=== PATIENT | male | born 1950 | race Caucasian/White ===

== ENCOUNTER 2024-02-02 10:48 | Inpatient (IN) | payer OTHER ==
[2024-02-02] MEDS: SODIUM CHLORIDE 0.9% 500 ML INFUS.BAG IV ONE ×2 (11:30→12:20)
[2024-02-02 11:44] LABS: BASO % 1.2 % (0-2.0); EOS % 0.1 % (0-4.5); HEMATOCRIT 51.8 % (35.4-49); HEMOGLOBIN 17.2 GM/dL (11.7-16.9); LYMPH % 7.3 % (8-40); MCH 33.7 pg (25.7-33.7); MCHC 33.2 g/dl (32.0-35.9); MEAN CELL VOLUME 101.6 fl (80-96); MEAN PLT VOLUME 11.3 fl (7.5-11.1); MONO % 7.4 % (3.8-10.2); RBC 5.09 M/mm3 (4.00-5.60); RDW 16.7 % (11.9-15.9); WHITE BLOOD COUNT 7.5 K/mm3 (4.0-10.0)
[2024-02-02 11:51] LABS: INR 1.6 (0.83-1.09); PROTHROMBIN TIME (PATIENT) 18.2 SEC (9.7-13.0)
[2024-02-02 11:54] LABS: ACTIVATED PTT 34.8 SECONDS (25.2-36.5)
[2024-02-02] MEDS ORDERED: dilTIAZem HCL 125 MG/25 ML - 25 ML VIAL ONE ×3 (12:07→15:41)
[2024-02-02 12:16] LABS: PHOSPHOROUS 2.8 mg/dL (2.5-4.9)
[2024-02-02 12:17] LABS: PLATELET COUNT 94 10^3/uL (134-434)
[2024-02-02] MEDS: dilTIAZem HCL 50 MG/10 ML - 10 ML VIAL IVPUSH ONE ×4 (12:26→15:48)
[2024-02-02 13:23] LABS: POTASSIUM 4.2 mmol/L (3.5-5.1)
[2024-02-02 13:25] LABS: CALCIUM 9.5 mg/dL (8.5-10.1)
[2024-02-02 13:26] LABS: ALBUMIN 3.8 g/dl (3.4-5.0); BLOOD UREA NITROGEN 36.7 mg/dL (7-18); MAGNESIUM 1.7 mg/dL (1.8-2.4)
[2024-02-02 13:29] LABS: CREATININE 1.4 mg/dL (0.55-1.3)
[2024-02-02 13:30] LABS: TOT PROT 6.7 g/dl (6.4-8.2)
[2024-02-02 13:31] LABS: BILIRUBIN,TOTAL 7.4 mg/dL (0.2-1)
[2024-02-02] MEDS ORDERED: ENOXAPARIN NA (PORCINE) 60 MG/0.6 ML DISP.SYRIN SQ ONE (14:36)
[2024-02-02] MEDS: ENOXAPARIN NA (PORCINE) 80 MG/0.8 ML DISP.SYRIN SQ ONE (14:40)
[2024-02-02] MEDS ORDERED: METOPROLOL TARTRATE 5 MG/5 ML VIAL ONE ×2 (16:01→18:11)
[2024-02-02] MEDS: METOPROLOL TARTRATE 5 MG/5 ML VIAL IVPUSH ONE ×3 (16:06→22:36)
[2024-02-02 16:37] LABS: N-TERMINAL BNP 17751.5 pg/ml (5-450)
[2024-02-02] MEDS ORDERED: MAGNESIUM SULFATE IN WATER 2 GM/50 ML IVPB IVPB ONE (19:46)
[2024-02-02] MEDS: MAGNESIUM SULFATE IN WATER 2 GM/50 ML IVPB IVPB ONE (19:55)
[2024-02-03 00:32] LABS: METHADONE, UR NEGATIVE (NEGATIVE); OPIATES, URI NEGATIVE (NEGATIVE)
[2024-02-03 00:33] LABS: PHENCYCLIDINE,URINE NEGATIVE (NEGATIVE); URINE AMPHETAMINES NEGATIVE (NEGATIVE); URINE BARBITURATES NEGATIVE (NEGATIVE); URINE BENZODIAZEPINES NEGATIVE (NEGATIVE)
[2024-02-03 00:50] LABS: COCAINE, UR POSITIVE (NEGATIVE)
[2024-02-03] MEDS: ENOXAPARIN NA (PORCINE) 60 MG/0.6 ML DISP.SYRIN SQ SCH ×2 (01:05→10:15)
[2024-02-03] MEDS: LORazepam 1 MG TABLET PO PRN ×2 (01:18→18:47)
[2024-02-03] MEDS: hydrALAZINE HCL 20 MG/ML VIAL IVPUSH ONE (02:20)
[2024-02-03 08:30] LABS: BASO % 0.3 % (0-2.0); CHLORIDE 100 mmol/L (98-107); HEMATOCRIT 51.5 % (35.4-49); HEMOGLOBIN 16.6 GM/dL (11.7-16.9); LYMPH % 4.8 % (8-40); MCH 33.6 pg (25.7-33.7); MCHC 32.2 g/dl (32.0-35.9); MEAN CELL VOLUME 104.4 fl (80-96); MEAN PLT VOLUME 11.5 fl (7.5-11.1); MONO % 8.1 % (3.8-10.2); NEUT % 86.8 % (42.8-82.8); PLATELET COUNT 93 10^3/uL (134-434); POTASSIUM 4.5 mmol/L (3.5-5.1); RBC 4.93 M/mm3 (4.00-5.60); RDW 16.6 % (11.9-15.9); SODIUM 138 mmol/L (136-145); WHITE BLOOD COUNT 9.5 K/mm3 (4.0-10.0)
[2024-02-03 08:36] LABS: ALBUMIN 3.6 g/dl (3.4-5.0); ANION GAP 15 mmol/L (4-13); BLOOD UREA NITROGEN 35.9 mg/dL (7-18); CALCIUM 8.9 mg/dL (8.5-10.1); CO2 22 mmol/L (21-32); GLUCOSE,RANDOM 79 mg/dL (74-106); MAGNESIUM 2.3 mg/dL (1.8-2.4)
[2024-02-03 08:39] LABS: CREATININE 1.6 mg/dL (0.55-1.3); SGOT/AST 121 U/L (15-37); SGPT/ALT 194 U/L (13-61)
[2024-02-03 08:40] LABS: PHOSPHOROUS 4.6 mg/dL (2.5-4.9)
[2024-02-03 08:41] LABS: BILIRUBIN,TOTAL 8.1 mg/dL (0.2-1); TOT PROT 6.3 g/dl (6.4-8.2)
[2024-02-03 08:42] LABS: ALK PHOS 104 U/L (45-117)
[2024-02-03] MEDS ORDERED: METOPROLOL TARTRATE 25 MG TABLET (FP) PO SCH (10:00)
[2024-02-03] MEDS ORDERED: ALBUTEROL SO4 2.5/IPRATROPIUM 0.5 INH SOL 3 ML VIAL.NEB. NEB PRN (12:02)
[2024-02-03] MEDS: dilTIAZem HCL 30 MG TABLET PO SCH (12:08)
[2024-02-03] MEDS: FUROSEMIDE 40 MG/4 ML INJECTABLE VIAL IVPUSH SCH (14:13)
[2024-02-03] MEDS ORDERED: dilTIAZem HCL 50 MG/10 ML - 10 ML VIAL IVPUSH PRN (17:01)
[2024-02-03] MEDS: SODIUM CHLORIDE 1,000 ML IV SCH (17:11)
[2024-02-03] MEDS: dilTIAZem HCL 25 MG/5 ML - 5 ML VIAL IVPUSH PRN (17:28)
[2024-02-03 17:40] LABS: INR 1.74 (0.83-1.09); PROTHROMBIN TIME (PATIENT) 19.4 SEC (9.7-13.0)
[2024-02-03 17:50] LABS: POTASSIUM 4.3 mmol/L (3.5-5.1)
[2024-02-03 17:52] LABS: CALCIUM 8.7 mg/dL (8.5-10.1)
[2024-02-03 17:53] LABS: ALBUMIN 3.2 g/dl (3.4-5.0); BLOOD UREA NITROGEN 43.4 mg/dL (7-18)
[2024-02-03 17:56] LABS: CREATININE 1.9 mg/dL (0.55-1.3)
[2024-02-03 17:57] LABS: BILIRUBIN,TOTAL 8.1 mg/dL (0.2-1); TOT PROT 5.6 g/dl (6.4-8.2)
[2024-02-03] MEDS: LORazepam 2 MG TABLET PO SCH (18:56)
[2024-02-03] MEDS ORDERED: SODIUM CHLORIDE 1,000 ML IV STA (20:55)
[2024-02-03] MEDS ORDERED: DIGOXIN 0.5 MG/2 ML AMPUL ONE (21:05)
[2024-02-03] MEDS: DIGOXIN 0.5 MG/2 ML AMPUL IVPUSH ONE (21:06)
[2024-02-03] MEDS: SODIUM CHLORIDE 500 ML IV STA (21:07)
[2024-02-03] MEDS: LORazepam 1 MG TABLET PO SCH (22:00)
[2024-02-04] MEDS: HALOPERIDOL LACTATE 5 MG/ML IM ONE (01:23)
[2024-02-04] MEDS: DIGOXIN 0.5 MG/2 ML AMPUL IVPUSH ONE ×2 (02:01→11:00)
[2024-02-04 08:15] LABS: HEMATOCRIT 47.8 % (35.4-49); HEMOGLOBIN 15.9 GM/dL (11.7-16.9); LYMPH % 6.8 % (8-40); MCHC 33.3 g/dl (32.0-35.9); MEAN CELL VOLUME 101.9 fl (80-96); MEAN PLT VOLUME 10.2 fl (7.5-11.1); MONO % 7.9 % (3.8-10.2); NEUT % 85.3 % (42.8-82.8); PLATELET COUNT 80 10^3/uL (134-434); RDW 16.4 % (11.9-15.9); WHITE BLOOD COUNT 8.1 K/mm3 (4.0-10.0)
[2024-02-04 08:22] LABS: POTASSIUM 4.4 mmol/L (3.5-5.1)
[2024-02-04 08:24] LABS: CALCIUM 8.4 mg/dL (8.5-10.1)
[2024-02-04 08:25] LABS: ALBUMIN 3.1 g/dl (3.4-5.0); BLOOD UREA NITROGEN 45.1 mg/dL (7-18)
[2024-02-04 08:28] LABS: CREATININE 1.7 mg/dL (0.55-1.3)
[2024-02-04 08:29] LABS: BILIRUBIN,TOTAL 7.9 mg/dL (0.2-1); TOT PROT 5.6 g/dl (6.4-8.2)
[2024-02-04 09:21] LABS: ARTERIAL BLD GAS O2 SATURATION 91.3 % (95-98); ARTERIAL BLOOD GAS PO2 57.3 mmHg (80-100); ARTERIAL BLOOD GAS pH 7.453 (7.350-7.450)
[2024-02-04 09:25] LABS: ALLENS TEST POSITIVE
[2024-02-04] MEDS: dilTIAZem HCL 60 MG TABLET PO SCH (11:18)
[2024-02-04] MEDS ORDERED: FUROSEMIDE 40 MG/4 ML INJECTABLE VIAL ONE (12:52)
[2024-02-04] MEDS: FUROSEMIDE 40 MG/4 ML INJECTABLE VIAL IVPUSH ONE (13:31)
[2024-02-04] MEDS ORDERED: DIGOXIN 0.5 MG/2 ML AMPUL IVPUSH ONE (18:00)
[2024-02-04] MEDS: LORazepam 2 MG/ML SDV VIAL IVPUSH PRN (18:49)
[2024-02-04] MEDS: MIDODRINE HCL 5 MG TABLET PO SCH (18:51)
[2024-02-05] MEDS ORDERED: LORazepam 1 MG TABLET PO SCH (05:00)
[2024-02-05 07:57] LABS: BASO % 0.1 % (0-2.0); HEMATOCRIT 50.5 % (35.4-49); HEMOGLOBIN 17.1 GM/dL (11.7-16.9); LYMPH % 4.4 % (8-40); MCH 34.1 pg (25.7-33.7); MCHC 33.9 g/dl (32.0-35.9); MEAN CELL VOLUME 100.6 fl (80-96); MEAN PLT VOLUME 10.4 fl (7.5-11.1); MONO % 7.2 % (3.8-10.2); NEUT % 88.3 % (42.8-82.8); PLATELET COUNT 71 10^3/uL (134-434); RBC 5.02 M/mm3 (4.00-5.60); RDW 16.5 % (11.9-15.9); WHITE BLOOD COUNT 4.4 K/mm3 (4.0-10.0)
[2024-02-05 08:12] LABS: INR 1.38 (0.83-1.09); POTASSIUM 3.3 mmol/L (3.5-5.1); PROTHROMBIN TIME (PATIENT) 15.4 SEC (9.7-13.0)
[2024-02-05 08:17] LABS: ALBUMIN 2.6 g/dl (3.4-5.0); CALCIUM 8.2 mg/dL (8.5-10.1)
[2024-02-05 08:18] LABS: BLOOD UREA NITROGEN 34.3 mg/dL (7-18)
[2024-02-05 08:20] LABS: CREATININE 1.3 mg/dL (0.55-1.3)
[2024-02-05 08:22] LABS: BILIRUBIN,TOTAL 7.7 mg/dL (0.2-1)
[2024-02-05] MEDS: FUROSEMIDE 40 MG/4 ML INJECTABLE VIAL IVPUSH SCH (09:37)
[2024-02-05] MEDS ORDERED: FUROSEMIDE 40 MG/4 ML INJECTABLE VIAL IVPUSH SCH (10:00)
[2024-02-05] MEDS ORDERED: DIGOXIN 0.5 MG/2 ML AMPUL IVPUSH SCH (10:00)
[2024-02-05 10:51] LABS: ANISOCYTOSIS 0; MACROCYTOSIS 0
[2024-02-05] MEDS: DIGOXIN 0.5 MG/2 ML AMPUL IVPUSH ONE ×2 (12:00→21:01)
[2024-02-05] MEDS: RIFAXIMIN 550 MG TABLET PO SCH (15:24)
[2024-02-05] MEDS: LACTULOSE 20 GM/30 ML UDC (FOR ORAL USE ONLY) PO SCH (15:24)
[2024-02-05] MEDS: KCL 10 MEQ IVPB 10 MEQ/100 ML INFUS.BAG IVPB SCH (17:14)
[2024-02-05] MEDS: PHYTONADIONE 10 MG/1 ML AMP IVPB ONE (17:14)
[2024-02-05 19:16] LABS: BF WBC & OTHER NUCLEATED CELLS 651 /mm3
[2024-02-05 19:27] LABS: BODY FLUID MACROPHAGES 32 %; BODY FLUID MONOCYTE 1 %
[2024-02-06] MEDS ORDERED: LORazepam 0.5 MG TABLET PO PRN
[2024-02-06] MEDS ORDERED: LORazepam 0.5 MG TABLET PO SCH (05:00)
[2024-02-06 06:51] LABS: HEMATOCRIT 55.1 % (35.4-49); HEMOGLOBIN 18.2 GM/dL (11.7-16.9); MCH 33.7 pg (25.7-33.7); MEAN CELL VOLUME 102.2 fl (80-96); MEAN PLT VOLUME 10.7 fl (7.5-11.1); PLATELET COUNT 61 10^3/uL (134-434); RBC 5.39 M/mm3 (4.00-5.60); RDW 16.7 % (11.9-15.9); WHITE BLOOD COUNT 7.5 K/mm3 (4.0-10.0)
[2024-02-06 06:53] LABS: INR 1.16 (0.83-1.09); PROTHROMBIN TIME (PATIENT) 13.1 SEC (9.7-13.0)
[2024-02-06 07:09] LABS: POTASSIUM 3.5 mmol/L (3.5-5.1)
[2024-02-06 07:20] LABS: CALCIUM 8.2 mg/dL (8.5-10.1)
[2024-02-06 07:21] LABS: ALBUMIN 2.6 g/dl (3.4-5.0); BLOOD UREA NITROGEN 30.6 mg/dL (7-18)
[2024-02-06 07:24] LABS: CREATININE 1.2 mg/dL (0.55-1.3)
[2024-02-06 07:27] LABS: BILIRUBIN,TOTAL 8.7 mg/dL (0.2-1)
[2024-02-06 08:51] LABS: ANISOCYTOSIS 0; MACROCYTOSIS 1+
[2024-02-06 11:24] LABS: BILIRUBIN,DIRECT 6.1 mg/dL (0.0-0.2)
[2024-02-06] MEDS: ACETAMINOPHEN 1000 MG/100 ML BAG IVPB ONE (14:20)
[2024-02-07] MEDS: LORazepam 0.5 MG TABLET PO ONE (06:32)
[2024-02-07 06:43] LABS: INR 1.22 (0.83-1.09)
[2024-02-07 06:52] LABS: CHLORIDE 104 mmol/L (98-107); SODIUM 146 mmol/L (136-145)
[2024-02-07 06:54] LABS: BLOOD UREA NITROGEN 33.8 mg/dL (7-18)
[2024-02-07 06:56] LABS: ALBUMIN 2.5 g/dl (3.4-5.0); CALCIUM 8.5 mg/dL (8.5-10.1); CO2 34 mmol/L (21-32); GLUCOSE,RANDOM 124 mg/dL (74-106)
[2024-02-07 06:59] LABS: CREATININE 1.2 mg/dL (0.55-1.3); SGOT/AST 81 U/L (15-37); SGPT/ALT 116 U/L (13-61)
[2024-02-07 07:01] LABS: BILIRUBIN,TOTAL 9.4 mg/dL (0.2-1)
[2024-02-07 07:02] LABS: ALK PHOS 76 U/L (45-117)
[2024-02-07 07:09] LABS: ANION GAP 7 mmol/L (4-13); POTASSIUM 2.9 mmol/L (3.5-5.1)
[2024-02-07 07:15] LABS: HEMATOCRIT 53.9 % (35.4-49); HEMOGLOBIN 17.9 GM/dL (11.7-16.9); MCH 33.6 pg (25.7-33.7); MCHC 33.1 g/dl (32.0-35.9); MEAN CELL VOLUME 101.4 fl (80-96); MEAN PLT VOLUME 10.7 fl (7.5-11.1); PLATELET COUNT 47 10^3/uL (134-434); RBC 5.32 M/mm3 (4.00-5.60); RDW 16.9 % (11.9-15.9); WHITE BLOOD COUNT 2.1 K/mm3 (4.0-10.0)
[2024-02-07 07:48] LABS: MAGNESIUM 1.3 mg/dL (1.8-2.4)
[2024-02-07 08:00] LABS: PHOSPHOROUS 1.1 mg/dL (2.5-4.9)
[2024-02-07] MEDS: MAGNESIUM SULFATE IN WATER 2 GM/50 ML IVPB IVPB ONE (09:16)
[2024-02-07 09:49] LABS: ANISOCYTOSIS 0; MACROCYTOSIS 0
[2024-02-07] MEDS: KCL 10 MEQ IVPB 10 MEQ/100 ML INFUS.BAG IVPB SCH (10:53)
[2024-02-07] MEDS ORDERED: LORazepam 1 MG TABLET PO PRN (11:44)
[2024-02-07] MEDS ORDERED: POTASSIUM CHLORIDE 20 MEQ in AMINO ACIDS 4.25%/D5W 1,000 ML IV SCH (11:45)
[2024-02-07] MEDS: POTASSIUM PHOSPHATE 15 MM in SODIUM CHLORIDE 250 ML IVPB ONE (12:40)
[2024-02-07] MEDS: POTASSIUM CHLORIDE ORAL LIQUID 20 MEQ/15 ML PO ONE (13:34)
[2024-02-07] MEDS: FOLIC ACID 1 MG TABLET (FP) PO SCH (13:35)
[2024-02-07 13:41] VITALS: BMI 17.7
[2024-02-07 14:09] LABS: BODY FLUID ALBUMIN 1.1 g/dL (Not Estab.)
[2024-02-07 14:10] LABS: CHLORIDE 104 mmol/L (98-107); SODIUM 149 mmol/L (136-145)
[2024-02-07 14:12] LABS: ALBUMIN 2.7 g/dl (3.4-5.0); ANION GAP 13 mmol/L (4-13); BLOOD UREA NITROGEN 36.9 mg/dL (7-18); CO2 32 mmol/L (21-32)
[2024-02-07 14:13] LABS: GLUCOSE,RANDOM 97 mg/dL (74-106)
[2024-02-07 14:15] LABS: SGOT/AST 79 U/L (15-37); SGPT/ALT 120 U/L (13-61)
[2024-02-07 14:16] LABS: CREATININE 1.3 mg/dL (0.55-1.3)
[2024-02-07 14:17] LABS: BILIRUBIN,TOTAL 10.3 mg/dL (0.2-1); TOT PROT 5.3 g/dl (6.4-8.2)
[2024-02-07 14:18] LABS: ALK PHOS 80 U/L (45-117)
[2024-02-07] MEDS: THIAMINE HCL 200 MG/2 ML VIAL IVPB SCH (14:39)
[2024-02-07 14:44] LABS: PHOSPHOROUS 0.9 mg/dL (2.5-4.9)
[2024-02-07] MEDS: LORazepam 2 MG TABLET PO SCH (15:28)
[2024-02-07] MEDS: FUROSEMIDE 40 MG/4 ML INJECTABLE VIAL IVPUSH ONE (17:53)
[2024-02-07 18:29] LABS: ARTERIAL BLD GAS O2 SATURATION 79.8 % (95-98); ARTERIAL BLOOD GAS BASE EXCESS 5.1 mmol/L (-2-2); ARTERIAL BLOOD GAS PO2 41.3 mmHg (80-100); ARTERIAL BLOOD GAS pH 7.467 (7.350-7.450)
[2024-02-07 18:31] LABS: ALLENS TEST POSITIVE
[2024-02-07] MEDS: LORazepam 1 MG TABLET PO SCH (18:46)
[2024-02-07] MEDS ORDERED: METOPROLOL TARTRATE 5 MG/5 ML VIAL ONE (19:14)
[2024-02-07] MEDS: NOREPINEPHRINE BITARTRATE 4,000 MCG in DEXTROSE 5%-WATER - 496 ML IV SCH (19:25)
[2024-02-07] MEDS ORDERED: NOREPINEPHRINE BITARTRATE 4 MG/4 ML ML IV ONE ×2 (19:26→20:47)
[2024-02-07] MEDS ORDERED: PROPOFOL 1,000,000 MCG/100 ML VIAL ONE (19:51)
[2024-02-07] MEDS: PROPOFOL 1,000,000 MCG/100 ML VIAL IVPB SCH (20:03)
[2024-02-07] MEDS: FENTANYL NS IVPB 500 MCG/100 ML BAG IVPB SCH (20:06)
[2024-02-07] MEDS: NOREPINEPHRINE BITARTRATE/D5W 8 MG/250 ML BAG IVPB SCH (21:14)
[2024-02-07] MEDS: POTASSIUM CHLORIDE 20 MEQ in AMINO ACIDS 4.25%/D5W 1,000 ML IV SCH (21:17)
[2024-02-07] MEDS: MULTIVIT INJ. ADULT COMBO WITH VIT K 1 COMBO 10 ML VIAL IV SCH (21:20)
[2024-02-07] MEDS ORDERED: VASopressin 20 UNITS/ML VIAL IV ONE (21:25)
[2024-02-07] MEDS: VASopressin 40 UNITS/100 ML BAG IV SCH (21:33)
[2024-02-07] MEDS: PANTOPRAZOLE SODIUM 40 MG VIAL IVPUSH SCH (21:43)
[2024-02-07] MEDS: HYDROCORTISONE SOD SUCCINATE 100 MG/2 ML VIAL IVPUSH SCH (21:43)
[2024-02-07 22:27] LABS: ARTERIAL BLOOD GAS BASE EXCESS 3.1 mmol/L (-2-2); ARTERIAL BLOOD GAS PO2 56.4 mmHg (80-100); ARTERIAL BLOOD GAS pH 7.394 (7.350-7.450)
[2024-02-07 22:36] LABS: BASO % 0.5 % (0-2.0); EOS % 0.7 % (0-4.5); HEMATOCRIT 52.8 % (35.4-49); HEMOGLOBIN 17.3 GM/dL (11.7-16.9); LYMPH % 9.8 % (8-40); MCH 32.9 pg (25.7-33.7); MCHC 32.8 g/dl (32.0-35.9); MEAN CELL VOLUME 100.5 fl (80-96); MEAN PLT VOLUME 11.3 fl (7.5-11.1); MONO % 2.4 % (3.8-10.2); NEUT % 86.6 % (42.8-82.8); RBC 5.25 M/mm3 (4.00-5.60); RDW 17.9 % (11.9-15.9)
[2024-02-07] MEDS: CHLORHEXIDINE GLUCONATE 4% CLEANSER FOR DECOLONIZATION TP SCH (22:38)
[2024-02-07] MEDS: MUPIROCIN 2% TOPICAL OINTMENT FOR DECOLONIZATION NS SCH (22:38)
[2024-02-07 22:42] LABS: INR 1.31 (0.83-1.09); PROTHROMBIN TIME (PATIENT) 14.7 SEC (9.7-13.0)
[2024-02-07 22:45] LABS: ACTIVATED PTT 57.6 SECONDS (25.2-36.5)
[2024-02-07] MEDS: VANCOMYCIN/WATER FOR INJ (PEG) 1,000 MG/200 ML BAG IVPB ONE (22:48)
[2024-02-07 22:54] LABS: WHITE BLOOD COUNT 0.6 K/mm3 (4.0-10.0)
[2024-02-07 22:55] LABS: PLATELET COUNT 29 10^3/uL (134-434)
[2024-02-07 22:59] LABS: CHLORIDE 105 mmol/L (98-107); SODIUM 147 mmol/L (136-145)
[2024-02-07 23:02] LABS: BLOOD UREA NITROGEN 39.1 mg/dL (7-18); CO2 32 mmol/L (21-32); GLUCOSE,RANDOM 104 mg/dL (74-106); MAGNESIUM 1.6 mg/dL (1.8-2.4)
[2024-02-07 23:05] LABS: CREATININE 1.5 mg/dL (0.55-1.3); PHOSPHOROUS 2.1 mg/dL (2.5-4.9); SGOT/AST 56 U/L (15-37); SGPT/ALT 87 U/L (13-61)
[2024-02-07 23:06] LABS: BILIRUBIN,TOTAL 8.5 mg/dL (0.2-1); TOT PROT 4.2 g/dl (6.4-8.2)
[2024-02-07 23:08] LABS: ALK PHOS 64 U/L (45-117)
[2024-02-07 23:09] LABS: ANION GAP 10 mmol/L (4-13); ANISOCYTOSIS 2+; LACTIC ACID 8.2 mmol/L (0.4-2.0); LDH 518 U/L (87-246); MACROCYTOSIS 1+; POTASSIUM 2.8 mmol/L (3.5-5.1); TARGET CELLS 1+; TEAR DROP CELLS 1+
[2024-02-07] MEDS: KCL 20 MEQ PREMIX BAG 20 MEQ/100 ML INFUS.BAG IVPB SCH (23:52)
[2024-02-08] MEDS: POTASSIUM PHOSPHATE 15 MM in SODIUM CHLORIDE 100 ML IVPB ONE (01:43)
[2024-02-08] MEDS: MAGNESIUM 2GM/50ML STERILE WATER IVPB IVPB ONE (01:43)
[2024-02-08] MEDS: PIPERACILLIN/TAZOB 3.375 GM 3.375 GM in DEXTROSE 5%-WATER - 50 ML IVPB SCH ×2 (02:14→17:58)
[2024-02-08 06:57] LABS: INR 1.27 (0.83-1.09); PROTHROMBIN TIME (PATIENT) 14.2 SEC (9.7-13.0)
[2024-02-08 06:59] LABS: ACTIVATED PTT 48.5 SECONDS (25.2-36.5)
[2024-02-08 07:04] LABS: HEMATOCRIT 51.7 % (35.4-49); HEMOGLOBIN 16.8 GM/dL (11.7-16.9); MCH 33.3 pg (25.7-33.7); MCHC 32.5 g/dl (32.0-35.9); MEAN CELL VOLUME 102.6 fl (80-96); MEAN PLT VOLUME 10.1 fl (7.5-11.1); PLATELET COUNT 27 10^3/uL (134-434); RBC 5.04 M/mm3 (4.00-5.60); RDW 18.7 % (11.9-15.9)
[2024-02-08 07:11] LABS: WHITE BLOOD COUNT 1.4 K/mm3 (4.0-10.0)
[2024-02-08 07:20] LABS: POTASSIUM 5.1 mmol/L (3.5-5.1)
[2024-02-08 07:24] LABS: BLOOD UREA NITROGEN 47.1 mg/dL (7-18); MAGNESIUM 2.1 mg/dL (1.8-2.4)
[2024-02-08 07:26] LABS: CREATININE 1.8 mg/dL (0.55-1.3)
[2024-02-08 07:27] LABS: PHOSPHOROUS 4.9 mg/dL (2.5-4.9); TOT PROT 4.1 g/dl (6.4-8.2)
[2024-02-08 07:28] LABS: AMYLASE 18 U/L (25-115)
[2024-02-08 07:42] LABS: ALBUMIN 1.9 g/dl (3.4-5.0); BILIRUBIN,TOTAL 7.2 mg/dL (0.2-1); CALCIUM 7.6 mg/dL (8.5-10.1)
[2024-02-08 09:03] LABS: ANISOCYTOSIS 1+; MACROCYTOSIS 1+
[2024-02-08] MEDS ORDERED: ACETAMINOPHEN 1000 MG/100 ML BAG IVPB PRN (09:47)
[2024-02-08] MEDS ORDERED: SODIUM CHLORIDE 1,000 ML IV STA (09:55)
[2024-02-08] MEDS ORDERED: SODIUM CHLORIDE 1,000 ML IV SCH (10:00)
[2024-02-08] MEDS: SODIUM CHLORIDE 1,000 ML IV STA ×2 (10:19→12:37)
[2024-02-08] MEDS: FLUDROCORTISONE ACETATE 0.1 MG TABLET (FP) PO SCH (10:30)
[2024-02-08 10:46] LABS: ARTERIAL BLOOD GAS BASE EXCESS -1.2 mmol/L (-2-2); ARTERIAL BLOOD GAS PO2 53.9 mmHg (80-100); ARTERIAL BLOOD GAS pH 7.295 (7.350-7.450)
[2024-02-08] MEDS ORDERED: DEXTROSE 50%-WATER 25 GM/50 ML DISP.SYRIN ONE ×2 (12:34→16:52)
[2024-02-08] MEDS: VANCOMYCIN/WATER FOR INJ (PEG) 1,000 MG/200 ML BAG IVPB ONE (14:30)
[2024-02-08] MEDS: SODIUM CHLORIDE 1,000 ML IV SCH (14:48)
[2024-02-08] MEDS: DEXTROSE 5%-NORMAL SALINE 1,000 ML IV SCH (20:00)
[2024-02-09] MEDS ORDERED: FENTANYL NS IVPB 500 MCG/100 ML BAG IVPB ONE ×2 (01:40→11:10)
[2024-02-09] MEDS: LORazepam 1 MG TABLET PO SCH (05:00)
[2024-02-09] MEDS: DEXTROSE 50%-WATER - 25 GM/50 ML VIAL IVPUSH PRN (06:17)
[2024-02-09 06:28] LABS: ARTERIAL BLD GAS O2 SATURATION 54.7 % (95-98); ARTERIAL BLOOD GAS BASE EXCESS -20.2 mmol/L (-2-2); ARTERIAL BLOOD GAS PO2 45.8 mmHg (80-100)
[2024-02-09 06:32] LABS: VENT MODE A/C; VENT RATE 12
[2024-02-09 06:33] LABS: ARTERIAL BLOOD GAS pH 6.929 (7.350-7.450)
[2024-02-09] MEDS: SODIUM BICARBONATE 8.4% 50 MEQ/50 ML DISP.SYRIN IVPUSH ONE ×2 (06:45)
[2024-02-09 07:26] LABS: CHLORIDE 108 mmol/L (98-107); SODIUM 144 mmol/L (136-145)
[2024-02-09 07:28] LABS: HEMATOCRIT 49.4 % (35.4-49); HEMOGLOBIN 15.2 GM/dL (11.7-16.9); MCH 33.5 pg (25.7-33.7); MCHC 30.8 g/dl (32.0-35.9); MEAN CELL VOLUME 108.6 fl (80-96); MEAN PLT VOLUME 11.5 fl (7.5-11.1); RBC 4.55 M/mm3 (4.00-5.60); RDW 20.2 % (11.9-15.9); WHITE BLOOD COUNT 2.7 K/mm3 (4.0-10.0)
[2024-02-09 07:30] LABS: BLOOD UREA NITROGEN 61.3 mg/dL (7-18); CO2 18 mmol/L (21-32); GLUCOSE,RANDOM 65 mg/dL (74-106); MAGNESIUM 2.1 mg/dL (1.8-2.4)
[2024-02-09 07:32] LABS: ALBUMIN 1.4 g/dl (3.4-5.0); ANION GAP 17 mmol/L (4-13); CALCIUM 6.7 mg/dL (8.5-10.1); POTASSIUM 6.7 mmol/L (3.5-5.1)
[2024-02-09 07:33] LABS: CREATININE 2.8 mg/dL (0.55-1.3); SGOT/AST 106 U/L (15-37); SGPT/ALT 57 U/L (13-61)
[2024-02-09 07:35] LABS: BILIRUBIN,TOTAL 7.1 mg/dL (0.2-1); TOT PROT 3.5 g/dl (6.4-8.2)
[2024-02-09 07:39] LABS: PLATELET COUNT 8 10^3/uL (134-434)
[2024-02-09 07:42] LABS: ALK PHOS 33 U/L (45-117)
[2024-02-09 07:59] LABS: PHOSPHOROUS 8.4 mg/dL (2.5-4.9)
[2024-02-09 08:38] LABS: ANISOCYTOSIS 0; MACROCYTOSIS 1+
[2024-02-09] MEDS ORDERED: DEXTROSE 5%-WATER - 1,000 ML with SODIUM BICARBONATE 8.4% - 150 MEQ IV SCH (09:00)
[2024-02-09] MEDS: SODIUM BICARBONATE 8.4% - 150 MEQ in DEXTROSE 5%-WATER - 1,000 ML IV SCH (09:30)
[2024-02-09] MEDS: SODIUM BICARBONATE 8.4% 50 MEQ/50 ML VIAL IVPUSH ONE (09:46)
[2024-02-09 10:09] LABS: CHLORIDE 107 mmol/L (98-107); SODIUM 138 mmol/L (136-145)
[2024-02-09 10:11] LABS: BLOOD UREA NITROGEN 62.4 mg/dL (7-18); CO2 15 mmol/L (21-32); GLUCOSE,RANDOM 81 mg/dL (74-106)
[2024-02-09 10:14] LABS: CREATININE 3.1 mg/dL (0.55-1.3)
[2024-02-09 10:16] LABS: BILIRUBIN,TOTAL 6.3 mg/dL (0.2-1); TOT PROT 4.1 g/dl (6.4-8.2)
[2024-02-09 10:17] LABS: ALK PHOS 21 U/L (45-117)
[2024-02-09 10:23] LABS: ALBUMIN 1.1 g/dl (3.4-5.0); ANION GAP 16 mmol/L (4-13); CALCIUM 6.5 mg/dL (8.5-10.1); POTASSIUM > 10.0 mmol/L (3.5-5.1); SGOT/AST 238 U/L (15-37); SGPT/ALT 64 U/L (13-61)
[2024-02-09] MEDS: CALCIUM GLUCONATE 10% - 1,000 MG/10 ML VIAL IVPUSH ONE (11:00)
[2024-02-09 11:08] LABS: PARATHYROID HORM INTACT 21 pg/mL (15-65)
[2024-02-09 11:27] LABS: ARTERIAL BLD GAS O2 SATURATION 50.6 % (95-98); ARTERIAL BLOOD GAS BASE EXCESS -25.9 mmol/L (-2-2); ARTERIAL BLOOD GAS PO2 46.4 mmHg (80-100); ARTERIAL BLOOD GAS pH 6.845 (7.350-7.450)
[2024-02-09 11:32] LABS: VENT MODE AC
[2024-02-09 11:33] LABS: VENT RATE 30
[2024-02-09 15:20] VITALS: BP 93/43; PULSE 59; RESP 30; TEMP 98.8
[2024-02-10] MEDS ORDERED: LORazepam 0.5 MG TABLET PO PRN
[2024-02-10] MEDS ORDERED: LORazepam 0.5 MG TABLET PO SCH (05:00)
[2024-02-11] MEDS ORDERED: LORazepam 0.5 MG TABLET PO ONE (05:00)
== END 2024-02-09 17:05 | disposition expired | DRG 308 ==
LOC: JER 10:48 → UNDOADMIN 20:38 → JERBED 20:38 → J4S 21:29 → J2W 02-04 11:52 → JICU 02-07 20:11
PROVIDERS: ADMIT Internal Medicine; ATTEND Internal Medicine
PROC: 0W993ZX Drainage of Right Pleural Cavity, Percutaneous Approach, Diagnostic (ICD-10-PCS; principal; 2024-02-05)
PROC: 5A1945Z Respiratory Ventilation, 24-96 Consecutive Hours (ICD-10-PCS; 2024-02-07)
PROC: 0BH17EZ Insertion of Endotracheal Airway into Trachea, Via Natural or Artificial Opening (ICD-10-PCS; 2024-02-07)
PROC: 04HY32Z Insertion of Monitoring Device into Lower Artery, Percutaneous Approach (ICD-10-PCS; 2024-02-07)
PROC: 4A133B1 Monitoring of Arterial Pressure, Peripheral, Percutaneous Approach (ICD-10-PCS; 2024-02-07)
PROC: 4A133J1 Monitoring of Arterial Pulse, Peripheral, Percutaneous Approach (ICD-10-PCS; 2024-02-07)
PROC: 06HM33Z Insertion of Infusion Device into Right Femoral Vein, Percutaneous Approach (ICD-10-PCS; 2024-02-07)
PROC: B54BZZA Ultrasonography of Right Lower Extremity Veins, Guidance (ICD-10-PCS; 2024-02-07)
DX: I48.19 Other persistent atrial fibrillation (principal); A41.9 Sepsis, unspecified organism; E43 Unspecified severe protein-calorie malnutrition; J96.01 Acute respiratory failure with hypoxia; K72.00 Acute and subacute hepatic failure without coma; G93.41 Metabolic encephalopathy; J96.02 Acute respiratory failure with hypercapnia; R65.21 Severe sepsis with septic shock; J69.0 Pneumonitis due to inhalation of food and vomit; J98.11 Atelectasis; N17.9 Acute kidney failure, unspecified; F10.230 Alcohol dependence with withdrawal, uncomplicated; E87.20 Acidosis, unspecified; D68.9 Coagulation defect, unspecified; E86.0 Dehydration; R74.01 Elevation of levels of liver transaminase levels; F17.200 Nicotine dependence, unspecified, uncomplicated; F19.90 Other psychoactive substance use, unspecified, uncomplicated; R79.89 Other specified abnormal findings of blood chemistry; D69.6 Thrombocytopenia, unspecified; Z68.20 Body mass index [BMI] 20.0-20.9, adult; E87.5 Hyperkalemia
CPT/HCPCS: 0241U-QW; 31500; 36415; 36430; 36600; 70450-TC; 71045-TC-FY; 71046-TC-FY; 71275-TC; 74178-TC; 76700-TC; 76942; 80048; 80053; 80162; 80307; 82042; 82140; 82150; 82248; 82272; 82306; 82308; 82310; 82465; 82533; 82550; 82553; 82570; 82607; 82728; 82746; 82803; 82945; 82962; 83605; 83615; 83690; 83735; 83880; 83970; 83986; 84100; 84132; 84157; 84300; 84439; 84443; 84478; 84484; 85025; 85384; 85610; 85730; 86140; 86705; 86707; 86708; 86803; 86850; 86900; 86901; 87070; 87075; 87077; 87081; 87102; 87116; 87186; 87205; 87206; 87210; 87340; 87350; 87517; 87633; 87899; 88108; 88305-TC; 93005; 93010; 93306-TC; 94002; 97116-GP; 97161-GP; 99285-25; G0480; J0131; J3490; P9037; Q9967